=== PATIENT | female | born 1950 | race Caucasian/White ===

== ENCOUNTER 2020-07-15 22:14 | Emergency (ER) | payer MEDICARE | END 2020-07-16 01:48 | disposition home or self-care (01) | LOC: ERS 22:14 | DX: T82.524A Displacement of infusion catheter, initial encounter (principal) | CPT/HCPCS: 99283 ==

== ENCOUNTER 2020-12-17 19:41 | Inpatient (IN) | payer MEDICARE ==
[2020-12-17 20:54] LABS: #Lymphocytes 1.2 thou/uL (1.20-3.40); #Monocytes 1.1 thou/uL (0.11-0.59); #Neutrophils 7.2 thou/uL (1.40-6.50); %Basophils 0.4 % (0.0-1.0); %Eosinophils 0.5 % (0.0-10.0); %Lymphocytes 12.5 % (21.0-51.0); %Monocytes 11.3 % (0.0-10.0); %Neutrophils 75.4 % (42.0-75.0); Hemoglobin 12.7 g/dL (12.0-16.0); Mean Corpuscular HGB CONC 34.7 g/dL (32.0-36.0); Mean Platelet Volume 7.1 fL (7.4-10.4); Platelet Count 174 thou/uL (130-400); RBC Distribution Width 15.3 % (11.5-14.5); Red Blood Cell (RBC) Count 3.63 mill/uL (4.20-5.40); White Blood Cell (WBC) Count 9.6 thou/uL (4.8-10.8)
[2020-12-17 20:58] LABS: Bacteria/HPF 4+ HPF (None Seen); Bilirubin Negative (Negative); Blood, Urine 2+ (Negative); Clarity Extra Turbid (Clear); Glucose, Urine (Dipstick) Normal (Negative); Ketone, Urine Negative (Negative); Leukocyte 500 Leu/uL (Negative); Nitrite 2+ (Negative); Protein, Urine (Dipstick) 50 mg/dL (Neg-Trace); RBC/HPF 21-50 HPF (0-3); Specific Gravity, Urine 1.023 (1.002-1.036); Urobilinogen Normal mg/dL (Less than 2); WBC/HPF Greater than 50 HPF (0-3); pH, Urine 5.5 (5.0-9.0)
[2020-12-17] MEDS ORDERED: cefTRIAXone\\ROCEPHIN 2 GM VIAL ONE (21:09)
[2020-12-17 21:19] LABS: ALT (SGPT) 25 U/L (8-55); AST (SGOT) 21 U/L (5-34); Albumin 3.9 g/dL (3.4-4.8); Alkaline Phosphatase 154 U/L (40-110); Anion Gap 14 mmol/L (10-20); BUN (Urea Nitrogen) 22 mg/dL (9.8-20.1); Calc. Creatinine Clearance 0 mL/min (70-130); Calcium 9.2 mg/dL (7.8-10.44); Carbon Dioxide 28 mmol/L (23-31); Chloride 94 mmol/L (98-107); Globulin 3.4 g/dL (2.4-3.5); Glucose 166 mg/dL (80-115); Protein, Total 7.3 g/dL (5.8-8.1); Sodium 133 mmol/L (136-145)
[2020-12-17 21:23] LABS: Potassium 2.9 mmol/L (3.5-5.1)
[2020-12-17] MEDS ORDERED: Vancomycin 1 GM/200 ML BAG ONE (21:42)
[2020-12-17] MEDS ORDERED: Potassium Chloride 20 MEQ TAB ONE (21:42)
[2020-12-17] MEDS ORDERED: Ketorolac Tromethamine 30 MG/ML VIAL ONE (23:20)
[2020-12-17 23:47] LABS: Lactic Acid 2.1 mmol/L (0.5-2.2)
[2020-12-18 00:11] VITALS: BMI 16.0
[2020-12-18] MEDS ORDERED: Ondansetron PF 4 MG/2 ML Vial IVP PRN (00:30)
[2020-12-18] MEDS ORDERED: Ondansetron ODT 4 MG TAB SL PRN (00:30)
[2020-12-18] MEDS ORDERED: Acetaminophen 325 MG TAB PO PRN (01:20)
[2020-12-18] MEDS ORDERED: hydrALAZINE 20 MG/ML VIAL SLOW IVP PRN (01:22)
[2020-12-18] MEDS ORDERED: Potassium Chloride 20 MEQ TAB PO SCH (01:30)
[2020-12-18] MEDS ORDERED: Electrolyte Replacement Protocol 1 EACH FS PRN (01:30)
[2020-12-18] MEDS: Piperacillin/Tazobactam 2.25 GM in Sodium Chloride 0.9% 100 ML IVPB SCH ×3 (01:45→15:12)
[2020-12-18] MEDS: Sodium Chloride 0.9% 1,000 ML IV SCH ×2 (01:45→08:57)
[2020-12-18 05:19] LABS: #Eosinphils 0.1 thou/uL (0.0-0.7); #Lymphocytes 1.2 thou/uL (1.20-3.40); #Neutrophils 4.8 thou/uL (1.40-6.50); %Basophils 0.3 % (0.0-1.0); %Eosinophils 1.1 % (0.0-10.0); %Lymphocytes 16.5 % (21.0-51.0); %Monocytes 13.8 % (0.0-10.0); %Neutrophils 68.2 % (42.0-75.0); Mean Corpuscular HGB CONC 34.2 g/dL (32.0-36.0); Mean Corpuscular Hemoglobin 34.7 pg (27.0-31.0); Mean Platelet Volume 7.2 fL (7.4-10.4); Platelet Count 141 thou/uL (130-400); RBC Distribution Width 15.3 % (11.5-14.5); Red Blood Cell (RBC) Count 2.89 mill/uL (4.20-5.40)
[2020-12-18 05:24] LABS: SARS-CoV-2 PCR by NAA Not Detected (NotDetected)
[2020-12-18 05:48] LABS: Anion Gap 12 mmol/L (10-20); BUN (Urea Nitrogen) 19 mg/dL (9.8-20.1); Calc. Creatinine Clearance 30 mL/min (70-130); Calcium 7.5 mg/dL (7.8-10.44); Carbon Dioxide 19 mmol/L (23-31); Chloride 109 mmol/L (98-107); Glucose 103 mg/dL (80-115); Potassium 3.6 mmol/L (3.5-5.1); Sodium 136 mmol/L (136-145)
[2020-12-18] MEDS ORDERED: Piperacillin/Tazobactam 4.5 GM in Sodium Chloride 0.9% 100 ML IVPB SCH (06:00)
[2020-12-18] MEDS ORDERED: Enoxaparin Sodium 30 MG/0.3 ML SYRINGE SC SCH (09:00)
[2020-12-18 12:08] VITALS: TEMP 97.9
[2020-12-18 15:44] VITALS: BP 102/67
[2020-12-18] MEDS ORDERED: VANCOMYCIN 1.25 GM/250 ML BAG IVPB SCH (22:00)
== END 2020-12-18 19:36 | disposition home or self-care (01) | DRG 699 ==
LOC: ERS 19:41 → SURG A 22:18
PROVIDERS: ADMIT Student in an Organized Health Care Education/Training Program; ATTEND Student in an Organized Health Care Education/Training Program
PROC: 0T25X0Z Change Drainage Device in Kidney, External Approach (ICD-10-PCS; principal; 2020-12-18)
DX: N99.521 Infection of incontinent external stoma of urinary tract (principal); N10 Acute pyelonephritis; N17.9 Acute kidney failure, unspecified; N99.522 Malfunction of incontinent external stoma of urinary tract; Y83.3 Surgical operation with formation of external stoma as the cause of abnormal reaction of the patient, or of later complication, without mention of misadventure at the time of the procedure; F17.210 Nicotine dependence, cigarettes, uncomplicated; B96.20 Unspecified Escherichia coli [E. coli] as the cause of diseases classified elsewhere; E87.6 Hypokalemia; Z20.822 Contact with and (suspected) exposure to COVID-19; Z85.038 Personal history of other malignant neoplasm of large intestine; Z90.49 Acquired absence of other specified parts of digestive tract
CPT/HCPCS: 36415; 50431; 50436; 71045; 74425; 75984; 80048; 80053; 81003; 81015; 83605; 85025; 87040; 87077; 87086; 87186; 87635; 93005; 96365; 96367; 96375; J0696; J1650; J1885; J2543; J3370; J3490; U0003; U0005

== ENCOUNTER 2021-02-25 14:55 | Inpatient (IN) | payer MEDICARE ==
[2021-02-25 15:25] LABS: Hemoglobin 15.1 g/dL (12.0-16.0); Mean Corpuscular HGB CONC 35.1 g/dL (32.0-36.0); Mean Corpuscular Hemoglobin 35.3 pg (27.0-31.0); Mean Platelet Volume 6.7 fL (7.4-10.4); Platelet Count 227 thou/uL (130-400); RBC Distribution Width 14.6 % (11.5-14.5); Red Blood Cell (RBC) Count 4.29 mill/uL (4.20-5.40)
[2021-02-25] MEDS ORDERED: Ondansetron PF 4 MG/2 ML Vial ONE (15:29)
[2021-02-25 15:33] LABS: INR-International Normal Ratio 0.9; PTT 17.9 sec (22.9-36.1); Prothrombin Time 12.8 sec (12.0-14.7)
[2021-02-25 15:40] LABS: MDiff Complete? YES
[2021-02-25 15:41] LABS: Band 9 % (5-11); Eosinophils 2 % (0-10); Lymphocytes 12 % (21-51); Monocytes 1 % (0-10); Neutrophil 76 % (42-75); Platelet Morphology Comment Appears Adequate; RBC Morphology Normal
[2021-02-25 15:53] LABS: AST (SGOT) 28 U/L (5-34); Albumin 4.7 g/dL (3.4-4.8); Alkaline Phosphatase 154 U/L (40-110); Anion Gap 17 mmol/L (10-20); BUN (Urea Nitrogen) 23 mg/dL (9.8-20.1); Bilirubin, Total 0.9 mg/dL (0.2-1.2); Calc. Creatinine Clearance 0 mL/min (70-130); Calcium 10.5 mg/dL (7.8-10.44); Carbon Dioxide 18 mmol/L (23-31); Chloride 103 mmol/L (98-107); Globulin 3.5 g/dL (2.4-3.5); Glucose 124 mg/dL (80-115); Potassium 4.3 mmol/L (3.5-5.1); Protein, Total 8.2 g/dL (5.8-8.1); Sodium 134 mmol/L (136-145)
[2021-02-25 15:59] LABS: Bacteria/HPF 3+ HPF (None Seen); Bilirubin Negative (Negative); Blood, Urine Large (Negative); Glucose, Urine (Dipstick) Negative (Negative); Ketone, Urine Negative (Negative); Leukocyte Moderate (Negative); Nitrite Positive (Negative); Protein, Urine (Dipstick) 100 mg/dL (Neg-Trace); Specific Gravity, Urine 1.025 (1.005-1.030); Urobilinogen 0.2 mg/dL (Less than 2); WBC/HPF Greater than 50 HPF (0-3)
[2021-02-25 16:01] LABS: Clarity Cloudy (Clear)
[2021-02-25 16:02] LABS: Squamous Epithelial 0-3 HPF (0-3); Yeast-Budding Rare HPF (None Seen)
[2021-02-25] MEDS ORDERED: Morphine 4 MG/ML VIAL ONE (16:03)
[2021-02-25] MEDS ORDERED: Piperacillin/Tazobactam 3.375 GM VIAL ONE (16:03)
[2021-02-25 16:08] LABS: Magnesium 2.2 mg/dL (1.6-2.6)
[2021-02-25 17:28] LABS: ALT (SGPT) 17 U/L (8-55)
[2021-02-25] MEDS ORDERED: Bisacodyl 5 MG TAB PO PRN (19:10)
[2021-02-25] MEDS ORDERED: GUAIFENESIN SF SOLN 200 MG/10 ML UDCUP PO PRN (19:14)
[2021-02-25] MEDS ORDERED: hydrALAZINE 20 MG/ML VIAL SLOW IVP PRN (19:14)
[2021-02-25] MEDS: Famotidine 20 MG TAB PO SCH (20:05)
[2021-02-25] MEDS: Acetaminophen 325 MG TAB PO PRN (20:06)
[2021-02-25] MEDS: Ondansetron PF 4 MG/2 ML Vial IVP PRN (20:06)
[2021-02-25 20:45] VITALS: BMI 15.3
[2021-02-25] MEDS: Potassium Chloride 10 MEQ in Dextrose 5%-Lactated Ringers 1,000 ML IV SCH (21:56)
[2021-02-25] MEDS: Cefepime 1 GM in Sodium Chloride 0.9% 100 ML IVPB SCH (21:56)
[2021-02-25] MEDS ORDERED: Vancomycin HCl 750 MG in Sodium Chloride 0.9% 250 ML 250 ML IVPB SCH (22:00)
[2021-02-25] MEDS ORDERED: Morphine 2 MG/ML VIAL SLOW IVP PRN (23:25)
[2021-02-26] MEDS: Promethazine HCl 25 MG in Sodium Chloride 0.9% 50 ML IVPB PRN (00:28)
[2021-02-26 05:34] LABS: ALT (SGPT) 17 U/L (8-55); AST (SGOT) 22 U/L (5-34); Albumin 3.6 g/dL (3.4-4.8); Alkaline Phosphatase 119 U/L (40-110); Anion Gap 13 mmol/L (10-20); BUN (Urea Nitrogen) 23 mg/dL (9.8-20.1); BUN/Creatinine Ratio 22.12; Bilirubin, Total 0.9 mg/dL (0.2-1.2); Calc. Creatinine Clearance 29 mL/min (70-130); Calcium 8.9 mg/dL (7.8-10.44); Carbon Dioxide 18 mmol/L (23-31); Chloride 110 mmol/L (98-107); Globulin 2.7 g/dL (2.4-3.5); Glucose 139 mg/dL (80-115); Phosphorus 3.2 mg/dL (2.3-4.7); Protein, Total 6.3 g/dL (5.8-8.1); Sodium 137 mmol/L (136-145)
[2021-02-26 06:25] LABS: SARS-CoV-2 NAA Rapid Test Not Detected (NotDetected)
[2021-02-26] MEDS: traMADol HCl 50 MG TAB PO PRN (08:05)
[2021-02-26] MEDS: Sodium Bicarbonate Tab 325 MG TAB PO SCH ×2 (10:17→20:17)
[2021-02-26] MEDS: Cefepime 1 GM in Sodium Chloride 0.9% 100 ML IVPB SCH ×2 (10:18→20:11)
[2021-02-26] MEDS: Enoxaparin Sodium 30 MG/0.3 ML SYRINGE SC SCH (10:18)
[2021-02-26] MEDS: Potassium Chloride 10 MEQ in Dextrose 5%-Lactated Ringers 1,000 ML IV SCH ×2 (11:10→22:25)
[2021-02-26] MEDS: HYDROcodone/Acetaminophen 5/325 mg Tablet PO PRN (12:02)
[2021-02-26] MEDS: Famotidine 20 MG TAB PO SCH (20:17)
[2021-02-26] MEDS: Ondansetron PF 4 MG/2 ML Vial IVP PRN (21:11)
[2021-02-26 21:31] LABS: Vancomycin, Random 5.5 ug/mL (See Comment)
[2021-02-26] MEDS ORDERED: Vancomycin HCl 500 MG in Sodium Chloride 0.9% 100 ML IVPB SCH (22:00)
[2021-02-26] MEDS ORDERED: Vancomycin HCl 750 MG in Sodium Chloride 0.9% 250 ML 250 ML IVPB SCH (22:00)
[2021-02-27] MEDS: Ondansetron PF 4 MG/2 ML Vial IVP PRN (07:35)
[2021-02-27] MEDS: Potassium Chloride 10 MEQ in Dextrose 5%-Lactated Ringers 1,000 ML IV SCH ×2 (09:25→18:15)
[2021-02-27 10:04] LABS: #Lymphocytes 0.7 thou/uL (1.20-3.40); #Monocytes 0.5 thou/uL (0.11-0.59); #Neutrophils 4.2 thou/uL (1.40-6.50); %Basophils 0.3 % (0.0-1.0); %Eosinophils 0.7 % (0.0-10.0); %Lymphocytes 12.2 % (21.0-51.0); %Monocytes 8.4 % (0.0-10.0); %Neutrophils 78.3 % (42.0-75.0); Mean Corpuscular HGB CONC 34.6 g/dL (32.0-36.0); Mean Corpuscular Hemoglobin 35.1 pg (27.0-31.0); Mean Platelet Volume 6.3 fL (7.4-10.4); Platelet Count 182 thou/uL (130-400); RBC Distribution Width 14.6 % (11.5-14.5); Red Blood Cell (RBC) Count 3.43 mill/uL (4.20-5.40); White Blood Cell (WBC) Count 5.4 thou/uL (4.8-10.8)
[2021-02-27] MEDS: Cefepime 1 GM in Sodium Chloride 0.9% 100 ML IVPB SCH ×2 (11:18→21:32)
[2021-02-27] MEDS: Enoxaparin Sodium 30 MG/0.3 ML SYRINGE SC SCH (11:30)
[2021-02-27] MEDS: Dextrose 5 %-0.45 % NaCl 1,000 ML IV SCH (12:23)
[2021-02-27] MEDS: Sodium Bicarbonate Tab 325 MG TAB PO SCH ×3 (15:00→21:31)
[2021-02-27 15:12] LABS: Albumin 3.2 g/dL (3.4-4.8); Anion Gap 13 mmol/L (10-20); BUN (Urea Nitrogen) 14 mg/dL (9.8-20.1); BUN/Creatinine Ratio 17.72; Calc. Creatinine Clearance 38 mL/min (70-130); Calcium 8.8 mg/dL (7.8-10.44); Carbon Dioxide 27 mmol/L (23-31); Chloride 104 mmol/L (98-107); Glucose 133 mg/dL (80-115); Phosphorus 2.1 mg/dL (2.3-4.7); Potassium 3.6 mmol/L (3.5-5.1); Sodium 140 mmol/L (136-145)
[2021-02-27] MEDS ORDERED: Potassium Phosphate 15 MMOL in Sodium Chloride 0.9% 250 ML 250 ML IVPB SCH (18:00)
[2021-02-27] MEDS: traMADol HCl 50 MG TAB PO PRN (21:32)
[2021-02-27] MEDS: Famotidine 20 MG TAB PO SCH (21:32)
[2021-02-27 21:51] LABS: Vancomycin, Random 7.4 ug/mL (See Comment)
[2021-02-27] MEDS ORDERED: Vancomycin HCl 500 MG in Sodium Chloride 0.9% 100 ML IVPB SCH (22:00)
[2021-02-28] MEDS: Vancomycin HCl 500 MG in Sodium Chloride 0.9% 100 ML IVPB SCH ×3 (00:46→23:05)
[2021-02-28] MEDS: Dextrose 5 %-0.45 % NaCl 1,000 ML IV SCH ×4 (01:36→23:02)
[2021-02-28] MEDS: HYDROcodone/Acetaminophen 5/325 mg Tablet PO PRN ×2 (02:18→11:22)
[2021-02-28 07:43] LABS: Anion Gap 10 mmol/L (10-20); BUN (Urea Nitrogen) 13 mg/dL (9.8-20.1); BUN/Creatinine Ratio 15.66; Calc. Creatinine Clearance 37 mL/min (70-130); Calcium 8.5 mg/dL (7.8-10.44); Carbon Dioxide 29 mmol/L (23-31); Chloride 103 mmol/L (98-107); Glucose 106 mg/dL (80-115); Phosphorus 2.9 mg/dL (2.3-4.7); Potassium 3.6 mmol/L (3.5-5.1); Sodium 138 mmol/L (136-145)
[2021-02-28] MEDS: Cefepime 1 GM in Sodium Chloride 0.9% 100 ML IVPB SCH ×2 (09:05→21:08)
[2021-02-28] MEDS: Enoxaparin Sodium 30 MG/0.3 ML SYRINGE SC SCH (09:13)
[2021-02-28] MEDS: Sodium Bicarbonate Tab 325 MG TAB PO SCH ×3 (09:13→21:08)
[2021-02-28] MEDS ORDERED: Lactated Ringer's 1,000 ML IV SCH ×2 (09:45→17:00)
[2021-02-28 17:42] LABS: #Eosinphils 0.1 thou/uL (0.0-0.7); #Lymphocytes 1.4 thou/uL (1.20-3.40); #Monocytes 0.4 thou/uL (0.11-0.59); #Neutrophils 2.9 thou/uL (1.40-6.50); %Basophils 0.6 % (0.0-1.0); %Eosinophils 2.7 % (0.0-10.0); %Lymphocytes 27.9 % (21.0-51.0); %Neutrophils 59.8 % (42.0-75.0); Hemoglobin 9.7 g/dL (12.0-16.0); Mean Corpuscular HGB CONC 34.4 g/dL (32.0-36.0); Mean Corpuscular Hemoglobin 35.2 pg (27.0-31.0); Mean Platelet Volume 6.2 fL (7.4-10.4); Platelet Count 137 thou/uL (130-400); RBC Distribution Width 14.3 % (11.5-14.5); Red Blood Cell (RBC) Count 2.75 mill/uL (4.20-5.40); White Blood Cell (WBC) Count 4.9 thou/uL (4.8-10.8)
[2021-02-28 17:57] LABS: Lactic Acid 1.1 mmol/L (0.5-2.2)
[2021-02-28 18:06] LABS: Troponin I Less than 0.010 ng/mL (< 0.028)
[2021-02-28] MEDS: Famotidine 20 MG TAB PO SCH (21:08)
[2021-02-28] MEDS: traMADol HCl 50 MG TAB PO PRN (21:08)
[2021-02-28] MEDS: Midodrine HCl 5 MG TAB PO SCH (21:08)
[2021-03-01 06:51] LABS: #Basophils 0.1 thou/uL (0.0-0.2); #Eosinphils 0.2 thou/uL (0.0-0.7); #Lymphocytes 1.3 thou/uL (1.20-3.40); #Monocytes 0.5 thou/uL (0.11-0.59); %Basophils 0.9 % (0.0-1.0); %Eosinophils 2.8 % (0.0-10.0); %Lymphocytes 21.5 % (21.0-51.0); %Neutrophils 66.8 % (42.0-75.0); Hemoglobin 10.6 g/dL (12.0-16.0); Mean Corpuscular HGB CONC 34.1 g/dL (32.0-36.0); Mean Corpuscular Hemoglobin 35.1 pg (27.0-31.0); Mean Platelet Volume 6.6 fL (7.4-10.4); Platelet Count 161 thou/uL (130-400); RBC Distribution Width 14.7 % (11.5-14.5); Red Blood Cell (RBC) Count 3.01 mill/uL (4.20-5.40)
[2021-03-01] MEDS: HYDROcodone/Acetaminophen 5/325 mg Tablet PO PRN (07:49)
[2021-03-01] MEDS: Sodium Bicarbonate Tab 325 MG TAB PO SCH ×3 (08:56→20:37)
[2021-03-01] MEDS: Enoxaparin Sodium 30 MG/0.3 ML SYRINGE SC SCH (08:56)
[2021-03-01] MEDS: Cefepime 1 GM in Sodium Chloride 0.9% 100 ML IVPB SCH ×2 (08:56→20:37)
[2021-03-01] MEDS: Midodrine HCl 5 MG TAB PO SCH ×3 (08:57→20:37)
[2021-03-01 11:12] LABS: Vancomycin, Trough 12.9 ug/mL
[2021-03-01] MEDS: Vancomycin HCl 500 MG in Sodium Chloride 0.9% 100 ML IVPB SCH ×2 (12:21→23:57)
[2021-03-01] MEDS: Dextrose 5 %-0.45 % NaCl 1,000 ML IV SCH (12:21)
[2021-03-01] MEDS: Ondansetron PF 4 MG/2 ML Vial IVP PRN (13:36)
[2021-03-01] MEDS ORDERED: Fentanyl 100 MCG/2 ML VIAL ONE (14:14)
[2021-03-01] MEDS: Promethazine HCl 25 MG in Sodium Chloride 0.9% 50 ML IVPB PRN (15:06)
[2021-03-01] MEDS: Famotidine 20 MG TAB PO SCH (20:37)
[2021-03-02] MEDS: Dextrose 5 %-0.45 % NaCl 1,000 ML IV SCH ×3 (00:03→20:11)
[2021-03-02] MEDS: Midodrine HCl 5 MG TAB PO SCH ×3 (08:40→20:12)
[2021-03-02] MEDS: Sodium Bicarbonate Tab 325 MG TAB PO SCH ×3 (08:40→20:13)
[2021-03-02] MEDS: Enoxaparin Sodium 30 MG/0.3 ML SYRINGE SC SCH (08:41)
[2021-03-02] MEDS: Cefepime 1 GM in Sodium Chloride 0.9% 100 ML IVPB SCH ×2 (08:41→20:24)
[2021-03-02] MEDS: Vancomycin HCl 500 MG in Sodium Chloride 0.9% 100 ML IVPB SCH (12:07)
[2021-03-02] MEDS: Famotidine 20 MG TAB PO SCH (20:13)
[2021-03-02] MEDS: Acetaminophen 325 MG TAB PO PRN (20:33)
[2021-03-03] MEDS: Vancomycin HCl 500 MG in Sodium Chloride 0.9% 100 ML IVPB SCH ×3 (00:44→23:30)
[2021-03-03] MEDS: Dextrose 5 %-0.45 % NaCl 1,000 ML IV SCH ×3 (05:51→20:49)
[2021-03-03] MEDS: Cefepime 1 GM in Sodium Chloride 0.9% 100 ML IVPB SCH ×2 (09:17→20:49)
[2021-03-03] MEDS: Sodium Bicarbonate Tab 325 MG TAB PO SCH ×3 (09:17→20:49)
[2021-03-03] MEDS: Enoxaparin Sodium 30 MG/0.3 ML SYRINGE SC SCH (09:17)
[2021-03-03] MEDS: Midodrine HCl 5 MG TAB PO SCH ×3 (09:17→20:49)
[2021-03-03 11:51] LABS: Vancomycin, Trough 16.1 ug/mL
[2021-03-03] MEDS: Famotidine 20 MG TAB PO SCH (20:50)
[2021-03-04 08:18] VITALS: BP 122/58; TEMP 98.7
[2021-03-04] MEDS: Midodrine HCl 5 MG TAB PO SCH (10:31)
[2021-03-04] MEDS: Enoxaparin Sodium 30 MG/0.3 ML SYRINGE SC SCH (11:21)
[2021-03-04] MEDS: Sodium Bicarbonate Tab 325 MG TAB PO SCH (11:21)
[2021-03-04] MEDS: Cefepime 1 GM in Sodium Chloride 0.9% 100 ML IVPB SCH (11:21)
== END 2021-03-04 10:45 | disposition home or self-care (01) | DRG 698 ==
LOC: ERS 14:55 → ONC 18:16
PROVIDERS: ADMIT Internal Medicine; ATTEND Internal Medicine
DX: T83.512A Infection and inflammatory reaction due to nephrostomy catheter, initial encounter (principal); A41.51 Sepsis due to Escherichia coli [E. coli]; A41.81 Sepsis due to Enterococcus; E43 Unspecified severe protein-calorie malnutrition; N13.6 Pyonephrosis; N17.9 Acute kidney failure, unspecified; E87.2 Acidosis; C78.02 Secondary malignant neoplasm of left lung; E87.1 Hypo-osmolality and hyponatremia; Z68.1 Body mass index [BMI] 19.9 or less, adult; K56.699 Other intestinal obstruction unspecified as to partial versus complete obstruction; Z16.24 Resistance to multiple antibiotics; C18.9 Malignant neoplasm of colon, unspecified; C79.60 Secondary malignant neoplasm of unspecified ovary; E86.0 Dehydration; E83.52 Hypercalcemia; F17.210 Nicotine dependence, cigarettes, uncomplicated; R91.1 Solitary pulmonary nodule; Y83.3 Surgical operation with formation of external stoma as the cause of abnormal reaction of the patient, or of later complication, without mention of misadventure at the time of the procedure; Z20.822 Contact with and (suspected) exposure to COVID-19; E83.39 Other disorders of phosphorus metabolism; I95.9 Hypotension, unspecified; Z90.49 Acquired absence of other specified parts of digestive tract; Z93.2 Ileostomy status; Z90.721 Acquired absence of ovaries, unilateral
CPT/HCPCS: 36415; 71045; 71250; 74018; 74176; 76770; 80053; 80069; 80202; 81003; 81015; 83605; 83690; 83735; 84443; 84484; 85025; 85610; 85730; 87040; 87077; 87086; 87186; 93005; 93306; 94760; 96365; 96375; J0690; J0692; J1650; J2270; J2405; J2543; J2550; J3010; J3370; J3480; J3490; J7050; U0002; U0005

== ENCOUNTER 2021-06-22 10:21 | Inpatient (IN) | payer MEDICARE ==
[2021-06-22] MEDS ORDERED: Iopamidol-370 76% 500 ML 1 ML ONE (10:44)
[2021-06-22] MEDS ORDERED: Fentanyl 100 MCG/2 ML VIAL ONE (12:00)
[2021-06-22 12:25] LABS: Hemoglobin 14.5 g/dL (12.0-16.0); Mean Corpuscular HGB CONC 33.6 g/dL (32.0-36.0); Mean Corpuscular Volume 95.3 fL (78.0-98.0); Mean Platelet Volume 7.3 fL (7.4-10.4); Platelet Count 310 thou/uL (130-400); RBC Distribution Width 13.1 % (11.5-14.5); Red Blood Cell (RBC) Count 4.53 mill/uL (4.20-5.40); White Blood Cell (WBC) Count 20.3 thou/uL (4.8-10.8)
[2021-06-22 12:42] LABS: ALT (SGPT) 19 U/L (8-55); AST (SGOT) 24 U/L (5-34); Albumin 4.1 g/dL (3.4-4.8); Alkaline Phosphatase 223 U/L (40-110); Anion Gap 27 mmol/L (10-20); BUN (Urea Nitrogen) 38 mg/dL (9.8-20.1); Bilirubin, Total 0.7 mg/dL (0.2-1.2); Calc. Creatinine Clearance 0 mL/min (70-130); Calcium 10.2 mg/dL (7.8-10.44); Carbon Dioxide 15 mmol/L (23-31); Chloride 97 mmol/L (98-107); Globulin 4.2 g/dL (2.4-3.5); Glucose 106 mg/dL (80-115); Lipase 25 U/L (8-78); Potassium 4.5 mmol/L (3.5-5.1); Protein, Total 8.3 g/dL (5.8-8.1); Sodium 134 mmol/L (136-145)
[2021-06-22 12:46] LABS: Band 23 % (5-11); Lymphocytes 6 % (21-51); MDiff Complete? YES; Monocytes 9 % (0-10); Neutrophil 62 % (42-75); Platelet Morphology Comment Appears Adequate; RBC Morphology Normal
[2021-06-22] MEDS ORDERED: Vancomycin 1 GM/200 ML BAG ONE (13:04)
[2021-06-22] MEDS ORDERED: Cefepime 2 GM VIAL ONE (13:04)
[2021-06-22] MEDS ORDERED: Morphine 4 MG/ML VIAL ONE ×2 (13:08→13:33)
[2021-06-22 14:03] LABS: Bacteria/HPF 4+ HPF (None Seen); Bilirubin Negative (Negative); Blood, Urine 1+ (Negative); Clarity Turbid (Clear); Glucose, Urine (Dipstick) Normal (Negative); Ketone, Urine Trace mg/dL (Negative); Leukocyte 500 Leu/uL (Negative); Nitrite 2+ (Negative); Protein, Urine (Dipstick) 50 mg/dL (Neg-Trace); Specific Gravity, Urine 1.047 (1.002-1.036); Squamous Epithelial None Seen HPF (0-3); Urobilinogen Normal mg/dL (Less than 2); WBC/HPF Greater than 50 HPF (0-3); pH, Urine 5.5 (5.0-9.0)
[2021-06-22 14:40] LABS: SARS-CoV-2 NAA Rapid Test Not Detected (NotDetected)
[2021-06-22 15:30] LABS: Lactic Acid 1.9 mmol/L (0.5-2.2)
[2021-06-22] MEDS ORDERED: Ondansetron ODT 4 MG TAB PO PRN (18:52)
[2021-06-22] MEDS ORDERED: Sodium Chloride 0.9% 1,000 ML IV SCH (19:00)
[2021-06-22] MEDS: HYDROcodone/Acetaminophen 5/325 mg Tablet PO PRN (23:27)
[2021-06-23 04:34] LABS: #Monocytes 0.7 thou/uL (0.11-0.59); #Neutrophils 6.7 thou/uL (1.40-6.50); %Basophils 0.1 % (0.0-1.0); %Eosinophils 0.1 % (0.0-10.0); %Lymphocytes 11.9 % (21.0-51.0); %Monocytes 8.4 % (0.0-10.0); %Neutrophils 79.5 % (42.0-75.0); Hemoglobin 10.4 g/dL (12.0-16.0); Mean Corpuscular HGB CONC 31.8 g/dL (32.0-36.0); Mean Corpuscular Hemoglobin 30.2 pg (27.0-31.0); Mean Platelet Volume 6.5 fL (7.4-10.4); Platelet Count 178 thou/uL (130-400); RBC Distribution Width 13.1 % (11.5-14.5); Red Blood Cell (RBC) Count 3.43 mill/uL (4.20-5.40); White Blood Cell (WBC) Count 8.4 thou/uL (4.8-10.8)
[2021-06-23 05:01] LABS: ALT (SGPT) 8 U/L (8-55); AST (SGOT) 12 U/L (5-34); Albumin 2.6 g/dL (3.4-4.8); Alkaline Phosphatase 112 U/L (40-110); Anion Gap 11 mmol/L (10-20); BUN (Urea Nitrogen) 28 mg/dL (9.8-20.1); Bilirubin, Total 0.4 mg/dL (0.2-1.2); Calc. Creatinine Clearance 31 mL/min (70-130); Calcium 7.9 mg/dL (7.8-10.44); Carbon Dioxide 18 mmol/L (23-31); Chloride 108 mmol/L (98-107); Globulin 2.3 g/dL (2.4-3.5); Glucose 98 mg/dL (80-115); Magnesium 1.7 mg/dL (1.6-2.6); Potassium 3.8 mmol/L (3.5-5.1); Protein, Total 4.9 g/dL (5.8-8.1); Sodium 133 mmol/L (136-145)
[2021-06-23] MEDS ORDERED: Sodium Chloride 0.9% 500 ML IV SCH (05:30)
[2021-06-23] MEDS ORDERED: Sodium Chloride 0.9% 1,000 ML IV SCH ×3 (06:00→18:30)
[2021-06-23] MEDS: HYDROcodone/Acetaminophen 5/325 mg Tablet PO PRN ×2 (08:31→20:18)
[2021-06-23] MEDS ORDERED: MEROPENEM 1 GM/50 ML 1 GM in Premix Bag 1 BAG IVPB SCH ×2 (10:00→22:00)
[2021-06-23] MEDS ORDERED: Azithromycin 500 MG in Sodium Chloride 0.9% 250 ML 250 ML IVPB SCH (10:00)
[2021-06-23] MEDS ORDERED: Albumin 25% 25 GM/100 ML BOT IVPB SCH (10:30)
[2021-06-23] MEDS ORDERED: Vancomycin 1 GM in Premix Bag 1 BAG IVPB SCH (13:00)
[2021-06-23] MEDS ORDERED: Meropenem 1 GM in Sodium Chloride 0.9% 100 ML IVPB SCH (14:00)
[2021-06-23] MEDS ORDERED: Cefepime 2 GM in Sodium Chloride 0.9% 100 ML IVPB SCH (14:00)
[2021-06-23] MEDS: cefTRIAXone\\ROCEPHIN 2 GM in Sodium Chloride 0.9% 100 ML IVPB SCH (14:48)
[2021-06-23 15:15] LABS: #Lymphocytes 0.7 thou/uL (1.20-3.40); #Monocytes 0.4 thou/uL (0.11-0.59); #Neutrophils 4.7 thou/uL (1.40-6.50); %Basophils 0.2 % (0.0-1.0); %Eosinophils 0.2 % (0.0-10.0); %Lymphocytes 11.4 % (21.0-51.0); %Monocytes 7.4 % (0.0-10.0); %Neutrophils 80.9 % (42.0-75.0); Hemoglobin 9.2 g/dL (12.0-16.0); Mean Corpuscular HGB CONC 33.6 g/dL (32.0-36.0); Mean Corpuscular Hemoglobin 31.9 pg (27.0-31.0); Mean Corpuscular Volume 94.9 fL (78.0-98.0); Mean Platelet Volume 6.3 fL (7.4-10.4); Platelet Count 167 thou/uL (130-400); RBC Distribution Width 12.9 % (11.5-14.5); Red Blood Cell (RBC) Count 2.87 mill/uL (4.20-5.40); White Blood Cell (WBC) Count 5.9 thou/uL (4.8-10.8)
[2021-06-23 15:38] LABS: BUN (Urea Nitrogen) 23 mg/dL (9.8-20.1); Calc. Creatinine Clearance 36 mL/min (70-130); Calcium 8.3 mg/dL (7.8-10.44); Carbon Dioxide 20 mmol/L (23-31); Chloride 110 mmol/L (98-107); Glucose 100 mg/dL (80-115); Potassium 3.4 mmol/L (3.5-5.1); Sodium 137 mmol/L (136-145)
[2021-06-23] MEDS ORDERED: Sodium Bicarbonate Tab 325 MG TAB PO SCH (17:45)
[2021-06-23 18:28] LABS: Phosphorus 2.3 mg/dL (2.3-4.7)
[2021-06-23] MEDS: Sodium Chloride 0.9% 1,000 ML IV SCH (18:28)
[2021-06-23 19:41] LABS: Anion Gap 10 mmol/L (10-20)
[2021-06-23] MEDS: Sodium Bicarbonate Tab 325 MG TAB PO SCH (20:19)
[2021-06-23] MEDS: Albumin 25% 25 GM/100 ML BOT IVPB SCH (20:19)
[2021-06-24 04:56] LABS: #Basophils 0.1 thou/uL (0.0-0.2); #Lymphocytes 0.7 thou/uL (1.20-3.40); #Monocytes 0.5 thou/uL (0.11-0.59); #Neutrophils 4.6 thou/uL (1.40-6.50); %Basophils 0.9 % (0.0-1.0); %Eosinophils 0.8 % (0.0-10.0); %Lymphocytes 11.3 % (21.0-51.0); %Monocytes 8.1 % (0.0-10.0); %Neutrophils 78.9 % (42.0-75.0); Hemoglobin 9.7 g/dL (12.0-16.0); Mean Corpuscular HGB CONC 34.7 g/dL (32.0-36.0); Mean Corpuscular Hemoglobin 32.4 pg (27.0-31.0); Mean Corpuscular Volume 93.3 fL (78.0-98.0); Mean Platelet Volume 6.4 fL (7.4-10.4); Platelet Count 187 thou/uL (130-400); RBC Distribution Width 12.9 % (11.5-14.5); Red Blood Cell (RBC) Count 3.01 mill/uL (4.20-5.40); White Blood Cell (WBC) Count 5.8 thou/uL (4.8-10.8)
[2021-06-24 05:17] LABS: Albumin 2.7 g/dL (3.4-4.8); Magnesium 1.7 mg/dL (1.6-2.6)
[2021-06-24] MEDS: Sodium Chloride 0.9% 1,000 ML IV SCH ×2 (05:29→15:16)
[2021-06-24] MEDS: Albumin 25% 25 GM/100 ML BOT IVPB SCH ×3 (09:21→21:23)
[2021-06-24] MEDS: Sodium Bicarbonate Tab 325 MG TAB PO SCH ×3 (09:21→21:23)
[2021-06-24] MEDS ORDERED: Sodium Chloride 0.9% 1,000 ML IV SCH (11:45)
[2021-06-24] MEDS: Benzonatate 100 MG CAP PO PRN ×2 (14:10→21:23)
[2021-06-24] MEDS: cefTRIAXone\\ROCEPHIN 2 GM in Sodium Chloride 0.9% 100 ML IVPB SCH (14:11)
[2021-06-24] MEDS: HYDROcodone/Acetaminophen 5/325 mg Tablet PO PRN ×2 (14:12→21:23)
[2021-06-24 14:44] LABS: Chloride 112 mmol/L (98-107); Potassium 3.3 mmol/L (3.5-5.1); Sodium 138 mmol/L (136-145)
[2021-06-24 14:45] LABS: Calcium 8.2 mg/dL (7.8-10.44); Glucose 96 mg/dL (80-115)
[2021-06-24 14:47] LABS: Anion Gap 10 mmol/L (10-20); Carbon Dioxide 19 mmol/L (23-31)
[2021-06-24 14:49] LABS: Calc. Creatinine Clearance 44 mL/min (70-130)
[2021-06-24 14:50] LABS: BUN (Urea Nitrogen) 16 mg/dL (9.8-20.1)
[2021-06-24] MEDS ORDERED: Magnesium 2 GM/50 ML 2 GM in Premix Bag 1 BAG IVPB SCH (16:15)
[2021-06-24] MEDS: Lactated Ringer's 1,000 ML IV SCH (17:33)
[2021-06-24] MEDS: Potassium Bicarbonate/Cit Ac 20 MEQ TAB PO SCH ×2 (17:33→21:23)
[2021-06-24] MEDS ORDERED: Potassium Chloride 20 MEQ TAB PO SCH (17:45)
[2021-06-24] MEDS ORDERED: FLU VACC QS2021-22(65YR UP)/PF 240 MCG/0.7 ML SYRINGE IM ONE (18:00)
[2021-06-24] MEDS ORDERED: Nystatin Powder 15 GM BOT TOP PRN (18:32)
[2021-06-25 05:08] LABS: #Eosinphils 0.1 thou/uL (0.0-0.7); #Lymphocytes 0.9 thou/uL (1.20-3.40); #Monocytes 0.5 thou/uL (0.11-0.59); #Neutrophils 4.6 thou/uL (1.40-6.50); %Basophils 0.4 % (0.0-1.0); %Eosinophils 1.6 % (0.0-10.0); %Lymphocytes 14.1 % (21.0-51.0); %Monocytes 8.7 % (0.0-10.0); %Neutrophils 75.3 % (42.0-75.0); Hemoglobin 9.3 g/dL (12.0-16.0); Mean Corpuscular Hemoglobin 30.2 pg (27.0-31.0); Mean Corpuscular Volume 94.3 fL (78.0-98.0); Mean Platelet Volume 6.7 fL (7.4-10.4); Platelet Count 196 thou/uL (130-400); RBC Distribution Width 12.9 % (11.5-14.5); Red Blood Cell (RBC) Count 3.09 mill/uL (4.20-5.40); White Blood Cell (WBC) Count 6.1 thou/uL (4.8-10.8)
[2021-06-25] MEDS: Benzonatate 100 MG CAP PO PRN ×2 (05:22→15:05)
[2021-06-25 05:30] LABS: Anion Gap 11 mmol/L (10-20); BUN (Urea Nitrogen) 9 mg/dL (9.8-20.1); Calc. Creatinine Clearance 47 mL/min (70-130); Calcium 8.8 mg/dL (7.8-10.44); Carbon Dioxide 24 mmol/L (23-31); Chloride 110 mmol/L (98-107); Glucose 100 mg/dL (80-115); Potassium 4.5 mmol/L (3.5-5.1); Sodium 140 mmol/L (136-145)
[2021-06-25] MEDS: Lactated Ringer's 1,000 ML IV SCH ×2 (05:50→18:34)
[2021-06-25] MEDS: Sodium Bicarbonate Tab 325 MG TAB PO SCH ×3 (08:50→20:42)
[2021-06-25] MEDS: HYDROcodone/Acetaminophen 5/325 mg Tablet PO PRN ×2 (13:16→20:41)
[2021-06-25] MEDS: cefTRIAXone\\ROCEPHIN 2 GM in Sodium Chloride 0.9% 100 ML IVPB SCH (14:56)
[2021-06-26] MEDS: Lactated Ringer's 1,000 ML IV SCH ×2 (08:50→20:47)
[2021-06-26] MEDS: Sodium Bicarbonate Tab 325 MG TAB PO SCH ×3 (08:52→20:01)
[2021-06-26] MEDS: HYDROcodone/Acetaminophen 5/325 mg Tablet PO PRN (08:52)
[2021-06-26] MEDS: cefTRIAXone\\ROCEPHIN 2 GM in Sodium Chloride 0.9% 100 ML IVPB SCH (14:58)
[2021-06-27] MEDS: Sodium Bicarbonate Tab 325 MG TAB PO SCH ×3 (08:53→20:25)
[2021-06-27] MEDS: Benzonatate 100 MG CAP PO PRN (08:53)
[2021-06-27] MEDS: HYDROcodone/Acetaminophen 5/325 mg Tablet PO PRN ×2 (08:54→20:24)
[2021-06-27] MEDS ORDERED: Furosemide 20 MG/2 ML VIAL SLOW IVP SCH (09:45)
[2021-06-27 11:14] LABS: Anion Gap 10 mmol/L (10-20); BUN (Urea Nitrogen) 5 mg/dL (9.8-20.1); BUN/Creatinine Ratio 7.25; Calc. Creatinine Clearance 48 mL/min (70-130); Calcium 8.9 mg/dL (7.8-10.44); Carbon Dioxide 32 mmol/L (23-31); Chloride 100 mmol/L (98-107); Glucose 97 mg/dL (80-115); Phosphorus 2.4 mg/dL (2.3-4.7); Potassium 4.1 mmol/L (3.5-5.1); Sodium 138 mmol/L (136-145)
[2021-06-27] MEDS: cefTRIAXone\\ROCEPHIN 2 GM in Sodium Chloride 0.9% 100 ML IVPB SCH (14:01)
[2021-06-28] MEDS: Furosemide 20 MG TAB PO SCH (08:56)
[2021-06-28] MEDS: Benzonatate 100 MG CAP PO PRN (08:57)
[2021-06-28] MEDS: Sodium Bicarbonate Tab 325 MG TAB PO SCH ×3 (08:57→21:30)
[2021-06-28] MEDS: HYDROcodone/Acetaminophen 5/325 mg Tablet PO PRN ×2 (08:57→21:32)
[2021-06-28] MEDS: cefTRIAXone\\ROCEPHIN 2 GM in Sodium Chloride 0.9% 100 ML IVPB SCH (14:34)
[2021-06-29] MEDS: Sodium Bicarbonate Tab 325 MG TAB PO SCH ×3 (08:34→20:05)
[2021-06-29] MEDS: Furosemide 20 MG TAB PO SCH (08:34)
[2021-06-29] MEDS: Acetaminophen 325 MG TAB PO PRN ×2 (09:45→18:33)
[2021-06-29] MEDS: cefTRIAXone\\ROCEPHIN 2 GM in Sodium Chloride 0.9% 100 ML IVPB SCH (14:23)
[2021-06-29] MEDS: HYDROcodone/Acetaminophen 5/325 mg Tablet PO PRN (22:00)
[2021-06-30] MEDS: Furosemide 20 MG TAB PO SCH (08:17)
[2021-06-30 08:23] LABS: Anion Gap 15 mmol/L (10-20); BUN (Urea Nitrogen) 9 mg/dL (9.8-20.1); Calc. Creatinine Clearance 46 mL/min (70-130); Carbon Dioxide 28 mmol/L (23-31); Chloride 100 mmol/L (98-107); Glucose 89 mg/dL (80-115); Potassium 4.2 mmol/L (3.5-5.1); Sodium 139 mmol/L (136-145)
[2021-06-30] MEDS: Sodium Bicarbonate Tab 325 MG TAB PO SCH ×3 (08:24→20:36)
[2021-06-30 08:25] LABS: #Eosinphils 0.2 thou/uL (0.0-0.7); #Lymphocytes 1.1 thou/uL (1.20-3.40); #Monocytes 0.5 thou/uL (0.11-0.59); #Neutrophils 5.5 thou/uL (1.40-6.50); %Basophils 0.1 % (0.0-1.0); %Eosinophils 2.2 % (0.0-10.0); %Lymphocytes 15.3 % (21.0-51.0); %Monocytes 6.2 % (0.0-10.0); %Neutrophils 76.2 % (42.0-75.0); Hemoglobin 10.6 g/dL (12.0-16.0); Mean Corpuscular HGB CONC 32.4 g/dL (32.0-36.0); Mean Corpuscular Hemoglobin 30.7 pg (27.0-31.0); Mean Corpuscular Volume 94.6 fL (78.0-98.0); Mean Platelet Volume 6.2 fL (7.4-10.4); Platelet Count 285 thou/uL (130-400); RBC Distribution Width 12.9 % (11.5-14.5); Red Blood Cell (RBC) Count 3.46 mill/uL (4.20-5.40); White Blood Cell (WBC) Count 7.2 thou/uL (4.8-10.8)
[2021-06-30 10:00] VITALS: BMI 16.2
[2021-06-30 11:42] LABS: SARS-CoV-2 PCR by NAA Not Detected (NotDetected)
[2021-06-30] MEDS: HYDROcodone/Acetaminophen 5/325 mg Tablet PO PRN ×2 (11:45→20:36)
[2021-06-30] MEDS: cefTRIAXone\\ROCEPHIN 2 GM in Sodium Chloride 0.9% 100 ML IVPB SCH (14:40)
[2021-06-30] MEDS: Benzonatate 100 MG CAP PO PRN (20:36)
[2021-07-01] MEDS: Furosemide 20 MG TAB PO SCH (07:57)
[2021-07-01] MEDS: Sodium Bicarbonate Tab 325 MG TAB PO SCH ×3 (07:57→21:27)
[2021-07-01] MEDS: HYDROcodone/Acetaminophen 5/325 mg Tablet PO PRN (11:25)
[2021-07-01 13:21] LABS: Prothrombin Time 13.7 sec (12.0-14.7)
[2021-07-01 13:22] LABS: PTT 29.3 sec (22.9-36.1)
[2021-07-01] MEDS ORDERED: Sodium Chloride 0.9% 10 ML ONE (13:50)
[2021-07-01] MEDS ORDERED: Fentanyl 100 MCG/2 ML VIAL ONE (13:50)
[2021-07-01] MEDS: cefTRIAXone\\ROCEPHIN 2 GM in Sodium Chloride 0.9% 100 ML IVPB SCH (15:05)
[2021-07-01] MEDS: Acetaminophen/Codeine 30-300mg Tablet PO PRN (18:27)
[2021-07-02] MEDS: Furosemide 20 MG TAB PO SCH (08:59)
[2021-07-02] MEDS: Sodium Bicarbonate Tab 325 MG TAB PO SCH ×2 (08:59→14:39)
[2021-07-02] MEDS: Acetaminophen/Codeine 30-300mg Tablet PO PRN (09:26)
[2021-07-02] MEDS: cefTRIAXone\\ROCEPHIN 2 GM in Sodium Chloride 0.9% 100 ML IVPB SCH (15:16)
[2021-07-02 15:33] VITALS: BP 107/58
[2021-07-02 16:00] VITALS: TEMP 98
== END 2021-07-02 18:20 | disposition home or self-care (01) | DRG 871 ==
LOC: ERS 10:21 → 2NO 16:18
PROVIDERS: ADMIT Internal Medicine; ATTEND Internal Medicine
PROC: 8E0ZXY6 Isolation (ICD-10-PCS; principal; 2021-06-22)
PROC: 0T9430Z Drainage of Left Kidney Pelvis with Drainage Device, Percutaneous Approach (ICD-10-PCS; 2021-07-01)
DX: A41.51 Sepsis due to Escherichia coli [E. coli] (principal); J18.9 Pneumonia, unspecified organism; E43 Unspecified severe protein-calorie malnutrition; N17.9 Acute kidney failure, unspecified; R64 Cachexia; N13.6 Pyonephrosis; Z68.1 Body mass index [BMI] 19.9 or less, adult; C78.00 Secondary malignant neoplasm of unspecified lung; E87.2 Acidosis; E87.1 Hypo-osmolality and hyponatremia; Z79.899 Other long term (current) drug therapy; Z51.5 Encounter for palliative care; Z20.822 Contact with and (suspected) exposure to COVID-19; F17.210 Nicotine dependence, cigarettes, uncomplicated; E86.0 Dehydration; D64.9 Anemia, unspecified; E83.42 Hypomagnesemia; E87.6 Hypokalemia; Z85.038 Personal history of other malignant neoplasm of large intestine; Z85.43 Personal history of malignant neoplasm of ovary; Z93.6 Other artificial openings of urinary tract status
CPT/HCPCS: 36415; 50430; 50433; 57010; 71045; 71275; 74174; 80048; 80053; 80069; 81003; 81015; 82040; 82274; 83605; 83690; 83735; 83880; 84100; 84484; 85025; 85610; 85730; 86850; 86900; 86901; 87040; 87077; 87086; 87186; 87324; 87449; 93005; 94760; 96365; 96366; 96367; 96375; J0456; J0692; J0696; J1940; J2185; J2270; J3010; J3370; J3475; J3490; J7050; J7120; P9047; Q9967; U0002; U0003; U0005

== ENCOUNTER 2021-07-10 18:27 | Inpatient (IN) | payer MEDICARE ==
[2021-07-10] MEDS ORDERED: Ondansetron PF 4 MG/2 ML Vial ONE (19:12)
[2021-07-10 20:17] LABS: Hemoglobin 13.3 g/dL (12.0-16.0); Mean Corpuscular HGB CONC 33.9 g/dL (32.0-36.0); Mean Corpuscular Hemoglobin 31.2 pg (27.0-31.0); Mean Corpuscular Volume 91.9 fL (78.0-98.0); Platelet Count 435 thou/uL (130-400); RBC Distribution Width 13.2 % (11.5-14.5); Red Blood Cell (RBC) Count 4.27 mill/uL (4.20-5.40); White Blood Cell (WBC) Count 11.1 thou/uL (4.8-10.8)
[2021-07-10 20:18] LABS: %Lymphocytes 16.5 % (21.0-51.0); Mean Platelet Volume 6.7 fL (7.4-10.4)
[2021-07-10 20:19] LABS: #Lymphocytes 1.8 thou/uL (1.20-3.40); #Monocytes 0.6 thou/uL (0.11-0.59); #Neutrophils 8.6 thou/uL (1.40-6.50); %Eosinophils 0.4 % (0.0-10.0)
[2021-07-10 20:20] LABS: #Basophils 0.1 thou/uL (0.0-0.2)
[2021-07-10 20:29] LABS: Carbon Dioxide 15 mmol/L (23-31); Chloride 97 mmol/L (98-107); Potassium 5.3 mmol/L (3.5-5.1); Sodium 133 mmol/L (136-145)
[2021-07-10 20:30] LABS: ALT (SGPT) 8 U/L (8-55); AST (SGOT) 15 U/L (5-34); Alkaline Phosphatase 158 U/L (40-110); Anion Gap 26 mmol/L (10-20); BUN (Urea Nitrogen) 59 mg/dL (9.8-20.1); Bilirubin, Total 0.3 mg/dL (0.2-1.2); Calc. Creatinine Clearance 0 mL/min (70-130); Calcium 10.4 mg/dL (7.8-10.44); Globulin 4.4 g/dL (2.4-3.5); Glucose 111 mg/dL (80-115); Protein, Total 9.4 g/dL (5.8-8.1)
[2021-07-10 21:15] LABS: Bilirubin Negative (Negative); Blood, Urine 3+ (Negative); Glucose, Urine (Dipstick) Normal (Negative); Ketone, Urine Negative (Negative); Leukocyte 500 Leu/uL (Negative); Nitrite Negative (Negative); Protein, Urine (Dipstick) 300 mg/dL (Neg-Trace); RBC/HPF Greater than 50 HPF (0-3); Specific Gravity, Urine 1.019 (1.002-1.036); Urobilinogen Normal mg/dL (Less than 2); WBC/HPF Greater than 50 HPF (0-3)
[2021-07-10 21:26] LABS: Clarity Turbid (Clear)
[2021-07-10 21:27] LABS: Bacteria/HPF 2+ HPF (None Seen); Yeast-Budding 2+ HPF (None Seen); Yeast-Hyphae 2+ HPF (None Seen)
[2021-07-10] MEDS ORDERED: Fentanyl 100 MCG/2 ML VIAL ONE (21:45)
[2021-07-10] MEDS ORDERED: cefTRIAXone\\ROCEPHIN 2 GM VIAL ONE (22:17)
[2021-07-10 23:40] LABS: Lactic Acid 1.7 mmol/L (0.5-2.2)
[2021-07-11] MEDS ORDERED: Vancomycin HCl 750 MG in Sodium Chloride 0.9% 250 ML 250 ML IVPB SCH (01:15)
[2021-07-11 01:45] VITALS: BMI 13.6
[2021-07-11] MEDS ORDERED: Acetaminophen 325 MG TAB PO PRN (01:50)
[2021-07-11] MEDS ORDERED: Ondansetron PF 4 MG/2 ML Vial IVP PRN (01:50)
[2021-07-11] MEDS ORDERED: HYDROcodone/Acetaminophen 5/325 mg Tablet PO PRN (02:13)
[2021-07-11] MEDS ORDERED: cefTRIAXone\\ROCEPHIN 1 GM in Sodium Chloride 0.9% 100 ML IVPB SCH (02:15)
[2021-07-11] MEDS ORDERED: Morphine 4 MG/ML VIAL SLOW IVP PRN (02:17)
[2021-07-11] MEDS: Sodium Chloride 0.9% 1,000 ML IV SCH ×2 (02:51→15:07)
[2021-07-11 04:45] LABS: #Basophils 0.1 thou/uL (0.0-0.2); #Eosinphils 0.1 thou/uL (0.0-0.7); #Lymphocytes 1.5 thou/uL (1.20-3.40); #Monocytes 0.5 thou/uL (0.11-0.59); #Neutrophils 5.2 thou/uL (1.40-6.50); %Basophils 0.7 % (0.0-1.0); %Lymphocytes 20.4 % (21.0-51.0); %Monocytes 7.2 % (0.0-10.0); %Neutrophils 70.6 % (42.0-75.0); Mean Corpuscular HGB CONC 33.9 g/dL (32.0-36.0); Mean Corpuscular Hemoglobin 31.2 pg (27.0-31.0); Mean Corpuscular Volume 92.2 fL (78.0-98.0); Mean Platelet Volume 6.6 fL (7.4-10.4); Platelet Count 311 thou/uL (130-400); RBC Distribution Width 13.1 % (11.5-14.5); Red Blood Cell (RBC) Count 3.53 mill/uL (4.20-5.40); White Blood Cell (WBC) Count 7.3 thou/uL (4.8-10.8)
[2021-07-11 04:52] LABS: Anion Gap 17 mmol/L (10-20); BUN (Urea Nitrogen) 55 mg/dL (9.8-20.1); Calc. Creatinine Clearance 10 mL/min (70-130); Calcium 9.2 mg/dL (7.8-10.44); Carbon Dioxide 18 mmol/L (23-31); Chloride 103 mmol/L (98-107); Glucose 135 mg/dL (80-115); Potassium 4.5 mmol/L (3.5-5.1); Sodium 133 mmol/L (136-145)
[2021-07-11] MEDS ORDERED: FLU VACC QS2021-22(65YR UP)/PF 240 MCG/0.7 ML SYRINGE IM ONE (09:00)
[2021-07-11 11:24] VITALS: TEMP 97.8
[2021-07-11 15:06] VITALS: BP 103/56
[2021-07-11 16:48] LABS: SARS-CoV-2 PCR by NAA Not Detected (NotDetected)
[2021-07-12] MEDS ORDERED: Vancomycin 0.001 GM in Premix Bag 1 BAG IVPB SCH (04:00)
== END 2021-07-11 18:25 | disposition home or self-care (01) | DRG 699 ==
LOC: ERS 18:27 → 2NO 22:22
PROVIDERS: ADMIT Student in an Organized Health Care Education/Training Program; ATTEND Internal Medicine
DX: T83.512A Infection and inflammatory reaction due to nephrostomy catheter, initial encounter (principal); Z20.822 Contact with and (suspected) exposure to COVID-19; N13.6 Pyonephrosis; N17.9 Acute kidney failure, unspecified; E87.2 Acidosis; E87.1 Hypo-osmolality and hyponatremia; Y84.6 Urinary catheterization as the cause of abnormal reaction of the patient, or of later complication, without mention of misadventure at the time of the procedure; F17.210 Nicotine dependence, cigarettes, uncomplicated; E86.9 Volume depletion, unspecified; G89.29 Other chronic pain; E87.5 Hyperkalemia; E86.0 Dehydration; T36.8X5A Adverse effect of other systemic antibiotics, initial encounter; D64.9 Anemia, unspecified; D49.89 Neoplasm of unspecified behavior of other specified sites; Z90.49 Acquired absence of other specified parts of digestive tract; Z85.038 Personal history of other malignant neoplasm of large intestine; Z79.899 Other long term (current) drug therapy
CPT/HCPCS: 36415; 71045; 74176; 80048; 80053; 81003; 81015; 82570; 83605; 84484; 85025; 93005; 96365; 96375; J0696; J2405; J3010; J3370; J3490; J7050; U0003; U0005

== ENCOUNTER 2022-03-22 16:44 | Outpatient (CLI) | payer MEDICARE | END 2022-03-22 16:45 | disposition home or self-care (01) | LOC: LABBT 16:44 | PROVIDERS: ATTEND Ophthalmology Retina Specialist | DX: H35.341 Macular cyst, hole, or pseudohole, right eye (principal); Z20.822 Contact with and (suspected) exposure to COVID-19 | CPT/HCPCS: 87811 ==

== ENCOUNTER 2022-03-24 07:23 | Day surgery (SDC) | payer MEDICARE ==
[~2022-03-24 07:23] MED LIST: Fluorouracil 100 MG, Enoxaparin Sodium 25 MG, EPINEPHrine 0.3 MG in Ophthalmic Irrigati... IRR SCH
[2022-03-24] MEDS ORDERED: Cyclopentolate 1% Opth Drop 2 ML BOT ONE (07:40)
[2022-03-24] MEDS ORDERED: Phenylephrine 2.5% Ophth Soln 5 ML BOT ONE (07:40)
[2022-03-24] MEDS ORDERED: fentaNYL Citrate/PF 100 MCG/2 ML SYRINGE ONE (09:34)
[2022-03-24] MEDS ORDERED: PROPOFOL 20 ML ONE (09:34)
[2022-03-24] MEDS ORDERED: Midazolam HCl 2 mg/2 ml Vial ONE (09:34)
[2022-03-24] MEDS ORDERED: Bupivacaine 0.75% 10 ML VIAL ONE (09:39)
[2022-03-24] MEDS ORDERED: Maxitrol 0.1% Opth Oint 3.5 GM TUBE ONE (09:39)
[2022-03-24] MEDS ORDERED: Triamcinolone 40 MG/ML VIAL ONE (09:39)
[2022-03-24] MEDS ORDERED: Lidocaine 4% PF 5 ML AMP ONE (09:39)
[2022-03-24] MEDS ORDERED: Indocyanine Green 25 MG/10 ML VIAL ONE (09:39)
[2022-03-24] MEDS ORDERED: Enoxaparin Sodium 30 MG/0.3 ML SYRINGE ONE (09:39)
[2022-03-24] MEDS ORDERED: Lidocaine 1% PF 5 ML VIAL ONE ×2 (09:39)
[2022-03-24] MEDS ORDERED: PROPOFOL 200 MG/20 ML VIAL ONE (09:39)
[2022-03-24] MEDS ORDERED: CEFAZOLIN 1 GM VIAL ONE (09:39)
[2022-03-24] MEDS ORDERED: Sodium Bicarbonate 2.5 MEQ/5 ML VIAL ONE (10:07)
== END 2022-03-24 11:20 | disposition home or self-care (01) ==
LOC: SDC 07:23
PROVIDERS: ATTEND Ophthalmology Retina Specialist
PROC: 08T43ZZ Resection of Right Vitreous, Percutaneous Approach (ICD-10-PCS; principal; 2022-03-24)
PROC: 08NE3ZZ Release Right Retina, Percutaneous Approach (ICD-10-PCS; 2022-03-24)
DX: H35.341 Macular cyst, hole, or pseudohole, right eye (principal); Z79.899 Other long term (current) drug therapy; Z88.8 Allergy status to other drugs, medicaments and biological substances
CPT/HCPCS: 67025; J0171; J0690; J1650; J2250; J2704; J3301; J3490; J9190

== ENCOUNTER 2022-05-10 16:24 | Outpatient (CLI) | payer MEDICARE | END 2022-05-10 16:25 | disposition home or self-care (01) | LOC: LABBT 16:24 | PROVIDERS: ATTEND Ophthalmology Retina Specialist | DX: Z20.822 Contact with and (suspected) exposure to COVID-19 (principal) | CPT/HCPCS: 87811 ==

== ENCOUNTER 2022-05-12 08:29 | Day surgery (SDC) | payer MEDICARE ==
[2022-05-11 11:50] VITALS: BMI 13.0
[~2022-05-12 08:29] MED LIST changes: +Midazolam HCl 2 mg/2 ml Vial ONE; +fentaNYL Citrate/PF 100 MCG/2 ML SYRINGE ONE
[2022-05-12] MEDS ORDERED: Lidocaine 1% MPF 2 ML VIAL ONE (08:44)
[2022-05-12] MEDS ORDERED: Phenylephrine 2.5% Ophth Soln 5 ML BOT ONE (08:45)
[2022-05-12] MEDS ORDERED: Cyclopentolate 1% Opth Drop 2 ML BOT ONE (08:45)
[2022-05-12] MEDS ORDERED: Indocyanine Green 25 MG/10 ML VIAL ONE (10:15)
[2022-05-12] MEDS ORDERED: Lidocaine 1% PF 5 ML VIAL ONE (10:15)
[2022-05-12] MEDS ORDERED: Lidocaine 4% PF 5 ML AMP ONE (10:15)
[2022-05-12] MEDS ORDERED: CEFAZOLIN 1 GM VIAL ONE (10:15)
[2022-05-12] MEDS ORDERED: PROPOFOL 200 MG/20 ML VIAL ONE (10:15)
[2022-05-12] MEDS ORDERED: Triamcinolone 40 MG/ML VIAL ONE (10:15)
[2022-05-12] MEDS ORDERED: Maxitrol 0.1% Opth Oint 3.5 GM TUBE ONE (10:15)
[2022-05-12] MEDS ORDERED: Enoxaparin Sodium 30 MG/0.3 ML SYRINGE ONE (10:15)
[2022-05-12] MEDS ORDERED: Bupivacaine 0.75% 10 ML VIAL ONE (10:15)
== END 2022-05-12 11:55 | disposition home or self-care (01) ==
LOC: SDC 08:29
PROVIDERS: ATTEND Ophthalmology Retina Specialist
PROC: 08T53ZZ Resection of Left Vitreous, Percutaneous Approach (ICD-10-PCS; principal; 2022-05-12)
PROC: 08NF3ZZ Release Left Retina, Percutaneous Approach (ICD-10-PCS; 2022-05-12)
DX: H35.342 Macular cyst, hole, or pseudohole, left eye (principal); Z79.899 Other long term (current) drug therapy; Z88.8 Allergy status to other drugs, medicaments and biological substances
CPT/HCPCS: 67025; J0171; J0690; J1650; J2250; J2704; J3301; J3490; J9190